=== PATIENT | female | born 1990 | race Caucasian/White ===

== ENCOUNTER 2017-02-13 15:53 | Day surgery (SDC) | payer OTHER ==
[2017-02-13 16:47] LABS: BASOPHILS % (AUTO) 0.5 %; EOSINOPHILS % (AUTO) 0.3 %; HCT - HEMATOCRIT 38.1 % (37.0-47.0); HGB - HEMOGLOBIN 12.6 g/dL (12.0-16.0); LYMPHOCYTES # (AUTO) 1.7 10^3/uL (1.5-3.5); LYMPHOCYTES % (AUTO) 27.6 %; MEAN CORPUSCULAR HEMOGLOBIN 29.7 pg (27.0-31.0); MEAN CORPUSCULAR HGB CONC 33.2 g/dL (32.0-36.0); MEAN CORPUSCULAR VOLUME 89.6 fL (81.0-99.0); MEAN PLATELET VOLUME 8.8 fL (7.9-10.8); MONOCYTES # (AUTO) 0.4 10^3/uL (0.0-1.0); MONOCYTES % (AUTO) 7.1 %; NEUTROPHILS % (AUTO) 64.5 %; NUCLEATED RED BLOOD CELLS AUTO 0.1 /100WBC; RED BLOOD COUNT 4.25 10^6/uL (4.20-5.40); RED CELL DISTRIBUTION WIDTH 13.1 % (12.0-15.0); UNCORRECTED WHITE BLOOD COUNT 6.2 x10^3/uL; WHITE BLOOD COUNT 6.2 x10^3/uL (4.8-10.8)
--- NOTE | 2017-02-13 19:07 | ED Physician Documentation ---
History of Present Illness - Stated complaint Stated Complaint: FEMALE - Chief complaint Chief Complaint: General - Additonal information Additional information: hx from pt 26 has a 15 month old she is breast feeding and had not resumed her menses but became had a TOP at 6wk6d at a clinic in [place] on 01/19 after 2 sonos to confirm IUP and not an ectopic did not have follow up or serial HCG after the procedure was fine until today wehn she developed vag bleeding at first thought it was her menses resuming but bleeding became very heavy and she bled through 5 large pads and 2 large tampons in 2 hr no pain no fever states no sexual intercourse since her TOP Review of Systems Constitutional: denies: Fever Cardiac: denies: Chest pain / pressure Respiratory: denies: Dyspnea GI: denies: Abdominal Pain : reports: Vaginal bleeding Endocrine: denies: Easy bruising / bleeding Immunocompromised: denies: Immunocompromised PD PAST MEDICAL HISTORY - Past Medical History Past Medical History: No - Past Surgical History Past Surgical History: Yes HEENT: Tonsil/Adenoidectomy - Present Medications Home Medications: Ambulatory Orders Medication Instructions Recorded Confirmed No Known Home Medications [No 02/13/17 02/13/17 Known Home Medications] - Allergies Allergies/Adverse Reactions: Allergies Allergy/AdvReac Type Severity Reaction Status Date / Time No Known Drug Allergies Allergy Verified 02/13/17 16:06 - Social History Does the pt smoke?: No Smoking Status: Never smoker - Immunizations Immunizations are current?: Yes PD ED PE NORMAL - Vitals Vital signs reviewed: Yes - Cardiac Cardiac: RRR - Respiratory Respiratory: No respiratory distress, Clear bilaterally - Abdomen Abdomen: Soft, Non tender - 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 ), Other (cervix open, large clot in os, dark blood pooling in vault, no tissue) Results - Vitals Vitals: Vital Signs - 24 hr 02/13/17 16:00 Temperature 36.5 C Heart Rate 88 Respiratory 18 Rate Blood Pressure 146/91 H O2 Saturation 100 Oxygen O2 Source Room air - Labs Labs: Laboratory Tests 02/13/17 02/13/17 02/13/17 16:40 16:40 16:40 WBC 6.2 RBC 4.25 Hgb 12.6 Hct 38.1 MCV 89.6 MCH 29.7 MCHC 33.2 RDW 13.1 Plt Count 206 MPV 8.8 Neut # 4.0 Lymph # 1.7 [place] # 0.4 Eos # 0.0 Baso # 0.0 Absolute Nucleated RBC 0.00 Nucleated RBC % 0.1 Serum HCG, Qual POSITIVE HCG, Quant 206.22 Blood Type 02/13/17 18:40 WBC RBC Hgb Hct MCV MCH MCHC RDW Plt Count MPV Neut # Lymph # [place] # Eos # Baso # Absolute Nucleated RBC Nucleated RBC % Serum HCG, Qual HCG, Quant Blood Type O POSITIVE - Rads (name of study) pelvic sono Radiology: See rad report PD MEDICAL DECISION MAKING - ED course ED course: quant down to 260, presumably was about 6500 when she had her TOP at 6wk6 spoke to OB Dr Heller at 1710 and he will come see pt sono shows retained POC pt O + Dr Heller evaluated and will take for D&C turned over to night EMP pending pt going to OR Departure - Departure Disposition: ED Transfer to [facility] Clinical Impression: Retained products of conception Condition: Good
--- NOTE | 2017-02-13 20:37 | Ultrasound Preliminary Report ---
Exam: US PELVIC NON OB W/DOPPLER IMPRESSION: 1. Heterogeneous endometrial canal with hypervascular solid material, presumably representing retaine d products of conception, not measured by ultrasound. RADIA The call report notification system was initiated by Dr. Eleno Chaves at 20:31 hrs on . The above findings were discussed with Dr. Heller by Dr. Eleno Chaves at 20:36 hrs on . SITE ID: [id number]
--- NOTE | 2017-02-13 20:40 | Ultrasound Report ---
EXAM: PELVIC ULTRASOUND PELVIC ULTRASOUND EXAM DATE: 02/13/2017 08:12 PM. CLINICAL HISTORY: Recent TOP pain and bleed ? Retained products. COMPARISON: None. TECHNIQUE: Realtime transabdominal pelvic scan performed to identify the uterus and adnexa and as an overview of other pelvic structures, followed by transvaginal scan to provide greater detail of the u terus and adnexa, with static image documentation. FINDINGS: Uterus: 8.7 x 4.1 x 6 cm, volume 112 cc. Anteverted position. Normal overall size and echotexture. Masses: No intramural mass. Endometrium: Endometrial contour is irregular. There is marked hypervascularity within the endometria l canal at the fundus of the uterus there is heterogeneous material located within the endometrial ca nal. There are cystic areas within the endometrium. The endometrium is not measured. Cervix: Unremarkable. Right Ovary: 1.9 x 1.6 x 2 cm, volume 3.3 cc. Normal echotexture and blood flow. Left Ovary: 1.4 x 1.0 x 1.5 cm, volume 1.1 cc. Normal echotexture and blood flow. Free Fluid: None. Other: None. IMPRESSION: 1. Heterogeneous endometrial canal with hypervascular solid material, presumably representing retaine d products of conception, not measured by ultrasound. RADIA The call report notification system was initiated by Dr. Eleno Chaves at 20:31 hrs on . The above findings were discussed with Dr. Heller by Dr. Eleno Chaves at 20:36 hrs on . Referring Provider Line: [phone] SITE ID: [id number]
[2017-02-13] MEDS ORDERED: LACTATED RINGERS 1,000 ML IV ONE (22:10)
--- NOTE | 2017-02-13 22:38 | OPERATIVE REPORT ---
Operative Report - General Procedure Date: 02/13/17 Planned Procedure: Suction dilatation and curettage Pre-Op Diagnosis: Incomplete Procedure Performed: Suction dilatation and curettage Post Op Diagnosis: Incomplete - Procedure Note Primary Surgeon: Ba Heller MD Secondary Surgeon: Mikie Canchola MD Anesthesia Technique: General ET tube Pathology: 15 g of conceptual products Estimated Blood Loss (mL): 10 Drain/Tube Type: Other (No Aguilar catheter patient voided just prior to leaving ER) Complications: NONE
[2017-02-13] MEDS ORDERED: PROPOFOL 200 MG/20 ML VIAL IVP ONE (22:43)
[2017-02-13] MEDS ORDERED: KETOROLAC 30 MG/ML VIAL IVP ONE (22:43)
[2017-02-13] MEDS ORDERED: fentaNYL 100 MCG/2 ML VIAL IVP ONE (22:43)
[2017-02-13 23:23] VITALS: BP 106/69
--- NOTE | 2017-02-14 03:00 | HISTORY & PHYSICAL EXAMINATION ---
DATE OF ADMISSION: 02/13/2017 DIAGNOSIS: Incomplete with hemorrhage. INTENDED PROCEDURE: Dilatation and curettage with suction. HISTORY: The patient is a 26-year-old, , 5, para 2 woman who became while b reast-feeding. Subsequently, she presented at the [facility] at 6 weeks 6 days, and under went a D and C for termination. Ultrasound confirmed that there was no ectopic present. Postprocedure , she had no significant bleeding or discharge until today. She began bleeding heavily, saturating 5 large pads and 2 tampons within 2 hours. She had clots described as plum-sized, and the largest being the size of a small orange. Since 01/19, she has been sexually inactive. She has no fevers, chills, or recent illnesses. PAST MEDICAL HISTORY: No chronic disease history. PAST SURGICAL HISTORY: Tonsillectomy, adenoidectomy. ALLERGIES: NO KNOWN DRUG ALLERGIES. MEDICATIONS: None. SOCIAL HISTORY: Active duty , . No drug, tobacco or alcohol use. FAMILY HISTORY: No reaction to anesthesia or thrombophilia. REVIEW OF SYSTEMS CONSTITUTIONAL: Negative. CARDIAC: Negative. RESPIRATORY: Negative. GENITOURINARY: Abdominal pain. GENITOURINARY: Reference HPI. ENDOCRINE: Negative for diabetes or hypothyroidism. HEMATOLOGIC: Denies easy bruising or immunocompromised. PHYSICAL EXAMINATION VITAL SIGNS: Temperature 36.5. Heartbeat 88, respiratory rate 18, blood pressure 146/91. HEENT: No thyromegaly. Supple neck. Nonicteric sclera. Dentition in good repair. LUNGS: Clear to auscultation. CARDIAC: Regular. No significant murmur or gallop. ABDOMEN: Scaphoid, soft, nontender. GENITOURINARY: Cervix open. A large clot with dark blood pooled in the vault. (Dr. Solares examining). UTERUS: Ultrasound was done that showed slightly enlarged uterus with vascular material in the endome trial canal. Some cystic material above what may be retained products of conception. Reviewed with Dr Andrea Chaves. EXTREMITIES: Cool to touch. Pulses present. NEUROLOGIC: Grossly intact. LABORATORY DATA: Hemoglobin 12.6, white count 6.5, platelets 206. ASSESSMENT: The patient has an incomplete with significant bleeding. If bleeding continues, there is danger of anemia and transfusion. Expeditious dilation and curettage is necessary and to [facility] and accomplishing this in a timely fashion is not possible. PLAN: Described risks, benefits and alternatives to D and C. Cytotec with expectant management is rej ected. Patient consented for dilatation and curettage. JOB #: [id number] EXT JOB #:[id number]
--- NOTE | 2017-02-14 11:56 | OPERATIVE REPORT ---
DATE OF SURGERY: 02/13/2017 00:00:00 PREOPERATIVE DIAGNOSES: Incomplete ; 6-7 weeks' size uterus. POSTOPERATIVE DIAGNOSIS: Incomplete confirmed. NAME OF PROCEDURE: Suction, dilatation and curettage. SURGEON: Ba Heller MD, FACOG ANESTHESIOLOGIST: Mikie Canchola MD ANESTHESIA: General ET tube placed. DRAINS: None. The patient allowed to void prior to procedure. COMPLICATIONS: None. SPECIMENS: Roughly 15-20 mL of conceptual products. FINDINGS: Examination under anesthesia was conducted. The external genitalia had no lesions. The left labia minora had a tear from a prior obstetrical injury, creating a 4-5 cm flap. Vagina showed clots and old blood. Cervix was dilated to 1 cm. There was a clot in the os. Uterus is retroverted about 6-7 weeks' size, soft. Adnexa, right and left ovary normal size, mobile. TECHNIQUE: Prior to the procedure, informed consent session was accomplished. The risks, benefits, an d alternatives were outlined. She is aware of the anesthesia reaction risk, infection, blood loss, an d perforation. After discussion, the patient declined Cytotec and desired a dilatation and curettage to complete the . The patient was brought to the operating room and placed in supine position for administration of gen eral anesthesia. She was uneventfully induced and intubated. She was moved to the low dorsal lithotom y position in [facility]. She was prepped and draped in the customary sterile fashion. Timeout briefing was done per policy. Exam under anesthesia was conducted. A weighted speculum was placed in the posterior vagina. Cervix w as grasped with single-toothed tenaculum. Serial application of Hegar probes were used to dilate to s ize 9. Size #9 suction curette was introduced into the cavity and appropriate amount of negative pres sure applied. The curette was maneuvered and moderate amount of tissue was harvested, after which a s harp curette was introduced and the endometrium was probed and there were no other thickenings felt. At this point, the procedure was terminated. Single-toothed tenaculum was removed. All instruments were removed. Anesthesia was uneventfully rever sed, and the patient was taken to the recovery room in stable condition. DISPOSITION: Once the patient recovers, she was prepared for discharge home. INSTRUCTIONS: Warning signs and callback instructions were reviewed. The patient will use Motrin for pain 600 p.o. q.6 hours. FOLLOWUP: She will follow up in 1 week to review pathology and as well to insert IUD. [facility] JOB #: [id number] EXT JOB #:[id number]
== END 2017-02-13 23:36 | disposition home or self-care (01) ==
LOC: ED 15:53 → SDS 21:49 → ED 22:23 → SDS 23:36
PROVIDERS: ATTEND Obstetrics & Gynecology
PROC: 10D17ZZ Extraction of Products of Conception, Retained, Via Natural or Artificial Opening (ICD-10-PCS; principal; 2017-02-13 21:56)
DX: O03.4 Incomplete spontaneous abortion without complication (principal)
CPT/HCPCS: 36415; 59812; 76830; 76856; 84702; 84703; 85025; 86900; 86901; 88305; 93975; 99283; 99284; J7120